=== PATIENT | female | born 1965 | race Caucasian/White ===

== ENCOUNTER 2016-07-22 20:57 | Emergency (ER) | payer SELFPAY ==
[~2016-07-22] VITALS: Ht 154.9 cm; Wt 67.1 kg
[2016-07-22 21:24] VITALS: BP 115/70
--- NOTE | 2016-07-22 22:09 | NUR ---
PT TAKEN TO BED 7
--- NOTE | 2016-07-22 22:09 | NUR ---
50 Y/O HERE W/C/O PAIN TO POSTERIOR HEAD/NECK, AND SOB. PT SAT 98% IN R/A. PT STATES STARTED FEELING LIKE THIS AFTER TAKING 2 IBUPROFEN 800MG 1 HR APART. VSS. ER NOTIFIED.
--- NOTE | 2016-07-22 22:48 | NUR ---
Dr. Alvarado evaluating patient at bedside.
[2016-07-22] MEDS ORDERED: ONDANSETRON 4 MG/2 ML VIAL IVP ONE (23:00)
[2016-07-22] MEDS ORDERED: NACL 0.9% 1,000 ML IV ONE (23:00)
--- NOTE | 2016-07-22 23:36 | NUR ---
PT RESTING IN BED, VSS, NO S/S OF DISTRESS NOTED AT THE MOMENT. PT RECEIVING IV FLUIDS. WILL CONT TO MONITOR.
[2016-07-23 01:48] VITALS: BP 104/69
--- NOTE | 2016-07-23 01:48 | NUR ---
Patient discharged with v/s stable. Written and verbal after care instructions given and explained. Patient alert, oriented and verbalized understanding of instructions. Ambulatory with steady gait. All questions addressed prior to discharge. ID band removed. Patient advised to follow up with PMD IN 2-3 DAYS OR RETURN TO ER IF SS WORSENS. Rx of ZOFRAN given. Patient educated on indication of medication including possible reaction and side effects. Opportunity to ask questions provided and answered.
== END 2016-07-23 01:48 | disposition home or self-care (01) ==
LOC: MED 20:57
DX: A08.4 Viral intestinal infection, unspecified (principal)
CPT/HCPCS: 36415; 80053; 81001; 81025; 82150; 83690; 84484; 85025; 93005; 96361; 96374; 99285; J2405; J7030